=== PATIENT | female | born 1995 | race Caucasian/White ===

== ENCOUNTER 2016-07-26 13:54 | Emergency (ER) | payer OTHER ==
[2016-07-26 14:06] VITALS: BP 122/103; PULSE 74; RESP 15; TEMP 99; O2SAT 96
[2016-07-26] MEDS ORDERED: ACETAMINOPHEN 500 MG TAB PO ONE (14:19)
--- NOTE | 2016-07-26 14:35 | EDPHY ---
H & P Smoking Status: Current some day smoker Time Seen by Provider: 07/26/16 14:09 HPI/ROS: CHIEF COMPLAINT: Mouth pain HISTORY OF PRESENT ILLNESS: This is a generally healthy 20-year-old female who presents with mouth pain that has been present for the past 2 days. It was preceded by 2 or 3 episodes of vomiting. The vomiting occurred 3 days ago and has not returned. She has not had fever. She describes the pain as involving her gums and upper mouth, she does not think that this is a toothache. She has difficulty localizing it further. She describes it as a feeling of pressure or burning. The pain is sometimes severe. She has been taking Advil regularly. She has also tried eating garlic and gargling with saltwater, without relief. REVIEW OF SYSTEMS: A ten point review of systems was performed and is negative with the exception of the items mentioned in the HPI. (Shandra Epps) Past Medical/Surgical History: Negative. (Shandra Epps) Social History: She is a student. (Shandra Epps) Physical Exam: General Appearance: Alert. Vital signs reviewed. Blood pressure 122/103 at triage Eyes: Pupils equal and round, no conjunctival injection, no discharge. Anicteric. ENT, Mouth: Mucous membranes are moist. Dentition in good repair. No dental pain with percussion of individual teeth. Gingiva without erythema or swelling. No swelling on the floor of her mouth. No lesions or ulcerations visualized. There is some tenderness of the soft palate, no erythema or fluctuance. No facial swelling. Neck: No lymphadenopathy, supple. Respiratory: Lungs are clear to auscultation; no wheezes, rales, or rhonchi. Cardiovascular: Regular rate and rhythm; no murmur, rub, or gallop. Skin: Warm and dry, no rashes on exposed skin, normal color. Neurological: Alert and oriented. Moving all four extremities easily and equally. Sensation is intact to light touch over the face. Psychiatric: Normal affect. (Shandra Epps) Constitutional: Initial Vital Signs Temperature (C) 37.2 C 07/26/16 14:04 Heart Rate 74 07/26/16 14:04 Respiratory Rate 15 07/26/16 14:04 Blood Pressure 122/103 H 07/26/16 14:04 O2 Sat (%) 96 07/26/16 14:04 O2 Delivery Mode Room Air Allergies/Adverse Reactions: No Known Allergies Allergy (Verified 07/26/16 14:04) Home Medications: Medication Instructions Recorded Hydrocodone/APAP 5/325 [Hassell 1 - 2 tab PO Q4 PRN #10 tab 07/26/16 5/325 (RX)] MDM/Departure - MDM Medications Given: Discontinued Medications Acetaminophen (Tylenol) 500 mg PO EDNOW ONE Stop: 07/26/16 14:20 Last Admin: 07/26/16 14:30 Dose: 500 mg ED Course/Re-evaluation: Generally healthy 20-year-old female with mouth pain. No evidence of dental abscess or gingival infection. No peritonsillar abscess or throat swelling. On exam the only thing that I have found is some tenderness of the soft palate. I do not see any intraoral lesions, swelling, fluctuance, or redness. The tender area is not swollen or erythematous. I am not sure of the significance of this area of tenderness. It is possible that this is irritation secondary to vomiting. I am recommending follow up with her dentist and/or ENT. (Shandra Epps) - Depart Disposition: Home, Routine, Self-Care Clinical Impression: Mouth pain Condition: Good Instructions: Toothache (ED) Additional Instructions: I am giving you information about toothache, although that doesn't really describe what is going on. Call your dentist tomorrow morning. I am giving you the name of the ear, nose, and throat doctor that is media relations manager for the emergency room, in case you need to contact an ENT specialist. You can also follow up with your primary care doctor at [facility]. Adult Pain & Fever Control: We recommend Acetaminophen (Tylenol) and Ibuprofen (Motrin,Advil) for pain and fever control. When fever is high or pain severe, both drugs can be used at the same time, but at different intervals. Please note the time differences. Your dose is: Acetaminophen 650mg every 4 to 6 hours Ibuprofen 400mg every 6 hours with food OR Note: do not take Acetaminophen with Hydrocodone (Vicodin, Lortab) or Oycodone (Percocet). These medications also contain Acetaminophen. No more than 3000mg of Acetaminophen should be taken in 24 hours (for an adult). Prescriptions: Hydrocodone/APAP 5/325 [Hassell 5/325 (RX)] 1 - 2 tab PO Q4 PRN #10 tab PRN Reason: pain Referrals: Blanca Otero MD [Medical Doctor] - As per Instructions
== END 2016-07-26 15:00 | disposition home or self-care (01) ==
DX: K13.79 Other lesions of oral mucosa (principal); F17.200 Nicotine dependence, unspecified, uncomplicated